=== PATIENT | male | born 1970 | race African-American/Black ===

== ENCOUNTER 2017-07-14 13:13 | Emergency (ER) | payer BC ==
[~2017-07-14] VITALS: Ht 170.2 cm; Wt 70.0 kg
[2017-07-14] MEDS ORDERED: ACETAMINOPHEN 500MG TABLET PO ONE (14:00)
[2017-07-14] MEDS ORDERED: MORPHINE SULFATE 10 MG/ML CPJ IM ONE (15:15)
[2017-07-14] MEDS ORDERED: LIDOCAINE HCL 1% 20ML VIAL (Pyxis) INJ INFIL ONE (15:30)
[2017-07-14] MEDS ORDERED: LIDOCAINE HCL/PF 1% 10 MG/ML 5ML VIAL IJ ONE (15:30)
[2017-07-14 17:08] VITALS: BP 116/87
== END 2017-07-14 17:11 | disposition home or self-care (01) ==
LOC: ER 13:32
DX: S62.614A Displaced fracture of proximal phalanx of right ring finger, initial encounter for closed fracture (principal); V89.2XXA Person injured in unspecified motor-vehicle accident, traffic, initial encounter; F12.10 Cannabis abuse, uncomplicated; Y93.89 Activity, other specified; Y92.89 Other specified places as the place of occurrence of the external cause; Y99.8 Other external cause status
CPT/HCPCS: 26725; 73140; 96372; 99284; J2270; J3490; Z7610